=== PATIENT | male | born 1990 | race Two or more races ===

== ENCOUNTER 2016-08-08 19:30 | Emergency (ER) | payer MEDICAID ==
[~2016-08-08] VITALS: Ht 180.3 cm; Wt 77.1 kg
[2016-08-08 19:40] VITALS: BP 139/85
[2016-08-08] MEDS ORDERED: LORazepam 0.5 MG TAB PO ONE (20:45)
== END 2016-08-08 20:43 | disposition home or self-care (01) ==
LOC: ER 19:33
DX: F41.9 Anxiety disorder, unspecified (principal); F12.10 Cannabis abuse, uncomplicated; F32.9 Major depressive disorder, single episode, unspecified

== ENCOUNTER 2017-02-19 06:46 | Emergency (ER) | payer MEDICAID ==
[~2017-02-19] VITALS: Ht 180.3 cm; Wt 77.1 kg
[2017-02-19 07:10] VITALS: BP 132/67
[2017-02-19] MEDS ORDERED: ALPRAZolam 0.5 MG TAB PO ONE (07:45)
== END 2017-02-19 08:05 | disposition home or self-care (01) ==
LOC: ER 06:46 → EDBD 06:46 → ER 08:05
DX: F41.1 Generalized anxiety disorder (principal); F17.210 Nicotine dependence, cigarettes, uncomplicated

== ENCOUNTER 2018-01-19 05:46 | Emergency (ER) | payer MEDICAID ==
[~2018-01-19] VITALS: Ht 180.3 cm; Wt 74.8 kg
[2018-01-19] MEDS ORDERED: LORazepam 0.5 MG TAB PO ONE (07:00)
[2018-01-19 08:23] VITALS: BP 118/72
== END 2018-01-19 08:25 | disposition home or self-care (01) ==
LOC: ER 05:50
DX: F41.9 Anxiety disorder, unspecified (principal); F12.10 Cannabis abuse, uncomplicated